=== PATIENT | female | born 1985 | race American Indian/Alaskan Native ===

== ENCOUNTER 2016-04-15 10:53 | Day surgery (SDC) | payer MEDICAID, OTHER ==
[2016-04-15] MEDS ORDERED: Glycopyrrolate 0.2 MG/ML 2 ML SYRINGE IVPUSH ONE (11:30)
[2016-04-15] MEDS ORDERED: Dextrose 5%-Lactated Ringers 1,000 ML IV SCH (11:30)
[2016-04-15] MEDS ORDERED: Propofol 200 MG/20 ML SDV ONE (11:38)
[2016-04-15] MEDS ORDERED: fentaNYL 100 MCG/2 ML SDV ONE (11:38)
[2016-04-15] MEDS ORDERED: Midazolam 1 MG/ML 2 ML SDV ONE (11:38)
[2016-04-15] MEDS ORDERED: Pantoprazole 40 MG Vial IVPUSH ONE (12:10)
[2016-04-15] MEDS ORDERED: HYDROmorphone 2 MG Tab PO PRN (12:45)
[2016-04-15 12:55] VITALS: BP 107/86
--- NOTE | 2016-04-21 11:07 | OR ---
DATE OF PROCEDURE: 04/15/2016 PREOPERATIVE DIAGNOSIS: Upper abdominal pain. POSTOPERATIVE DIAGNOSIS: Upper abdominal pain associated with ulcerated area with bleeding at the upper aspect of the gastric pouch. PROCEDURE: Upper GI endoscopy with biopsy of the gastric pouch for CLOtest. ANESTHESIA: IV sedation. INDICATION FOR PROCEDURE: A 31-year-old status post John-en-Y gastric bypass, presenting with some ongoing upper abdominal pain. This occurs in the postprandial period, but happens fairly immediately after eating. Plan is to proceed with upper GI endoscopy with biopsies and/or dilation as indicated. Potential risks including bleeding and perforation were discussed, and the patient wishes to proceed. DESCRIPTION OF OPERATION: The patient was taken to the operating room and placed in a left lateral decubitus position. IV sedation was administered, after which the upper GI endoscope was passed orally through the esophagus into the gastric pouch and from there through the gastrojejunostomy roughly 20 cm into the John limb. FINDINGS: Included normal hypopharynx, larynx, upper esophageal sphincter, and esophageal body at the EG junction. There was noted to be some blood present at the upper aspect of the gastric pouch. The area of inflammation appeared to be more or less at the esophagogastric junction with some blood present at that area, associated with small areas of ulceration. The remainder of the pouch was somewhat reddened and edematous. The gastrojejunostomy was widely patent and there was no marginal ulcer present, and the visualized portion of the John limb was unremarkable. At this point, biopsies were obtained from the gastric pouch and sent for the CLOtest for H. pylori. Minimal bleeding from the biopsy sites was seen and the procedure then concluded. Plan will be to have the patient started on Protonix 40 mg b.i.d. x7 days and then 40 mg daily. We will see the patient back in 1 week. If she continues to have symptoms of more of the postprandial lower abdominal pain, repeat laparoscopy or laparotomy may be necessary to look for problems such as adhesions. Mike Perez MD /[id number]
== END 2016-04-15 12:58 | disposition home or self-care (01) ==
LOC: JP.SDS 10:53
PROVIDERS: ATTEND Surgery
PROC: 0DB48ZX Excision of Esophagogastric Junction, Via Natural or Artificial Opening Endoscopic, Diagnostic (ICD-10-PCS; principal; 2016-04-15)
DX: R10.10 Upper abdominal pain, unspecified (principal); K22.11 Ulcer of esophagus with bleeding; Z98.84 Bariatric surgery status
CPT/HCPCS: 43239; 87081; A9270; C9113; J2250; J2704; J3010; J7042